=== PATIENT | male | born 1970 | race Caucasian/White ===

== ENCOUNTER → 2017-02-14 | Outpatient (CLI) | payer OTHER ==
[~2017-02-14] MED LIST: NXM/40 PO; VTMD PO; [UNRECOGNIZED DRUG - CODE] PO
== END | disposition home or self-care (01) ==
LOC: C.LABBC 08:11
PROVIDERS: ATTEND Family Medicine
DX: E22.1 Hyperprolactinemia (principal); D35.2 Benign neoplasm of pituitary gland

== ENCOUNTER → 2017-02-24 | Outpatient (CLI) | payer OTHER ==
[2017-02-24 13:24] LABS: BASO % 0.3 %; BASO ABS # 0.02 K/uL (0-0.2); EOS % 1.8 %; EOS ABS # 0.12 K/uL (0-0.5); HEMATOCRIT 42.1 % (42-52); HEMOGLOBIN 14.6 g/dL (14.0-18.0); IG# 0.02 K/uL (0.00-0.02); LYMPH % 15.4 %; MEAN CORPUSCULAR HEMOGLOBIN 32.6 pg (25-34); MEAN CORPUSCULAR HGB CONC 34.7 g/dl (32-36); MEAN PLATELET VOLUME 11.1 fL (7.4-10.4); MONO % 5.2 %; MONO ABS # 0.34 K/uL (0.11-0.59); NEUT ABS # 4.99 K/uL (1.4-6.5); PLATELET COUNT 190 K/uL (130-400); WHITE BLOOD COUNT 6.49 K/uL (4.8-10.8)
[2017-02-24 15:49] LABS: BLOOD UREA NITROGEN 15 mg/dl (7-18); CREATININE 1.01 mg/dl (0.60-1.40); URIC ACID 8.3 mg/dl (2.6-7.2)
== END | disposition home or self-care (01) ==
LOC: C.LABBC 11:44
PROVIDERS: ATTEND Orthopaedic Surgery
DX: M25.50 Pain in unspecified joint (principal); M10.9 Gout, unspecified

== ENCOUNTER → 2017-04-25 | Outpatient (CLI) | payer OTHER ==
[~2017-04-25] MED LIST changes: +GADAVIST IV PRN
--- NOTE | 2017-04-25 08:35 | DIAGNOSTIC IMAGING REPORT ---
BRAIN COMBO FOR PITUITARY HISTORY: 46 years-old Male BRAIN COMBO elevated prolactin level with known pituitary microadenoma COMPARISON: None available TECHNIQUE: Multiplanar multisequence MRI of the brain was obtained both with and without the use of 11.5 mL Gadavist utilizing pituitary protocol. FINDINGS: The large [id number] food service aide localizer images demonstrate no gross abnormality. There is no restricted diffusion to suggest acute or subacute infarction. The midline structures including the corpus callosum, brainstem, and optic chiasm are unremarkable. No cerebellar tonsillar herniation. 4 mm pineal gland cyst incidentally noted. Mild degenerative changes of the imaged cervical spine. There is no acute intracranial hemorrhage, midline shift, abnormal extra-axial collections, hydrocephalus or intra-axial mass lesion identified. There are multiple punctate foci of T2/FLAIR prolongation within the subcortical white matter of the cerebral hemispheres, notably within the frontal lobes, likely of no clinical significance. Brain parenchyma otherwise is unremarkable and within normal limits. The major flow voids at the level of the skull base appear patent. The orbits are symmetric and within normal limits. Mild mucosal thickening of the ethmoid air cells and maxillary sinuses. Mastoid air cells are clear. The scalp, calvarium and soft tissues are within normal limits. There is a focal area of ill-defined decreased enhancement within the left aspect of the mid to posterior pituitary gland, 4 x 4 x 2 mm. This area is isointense on the T1 images. Slight bulkiness of the gland seen within this region on the precontrast images. No significant remodeling of the adjacent sella. No abnormal intra-axial enhancement. IMPRESSION: 1. Focal area of slightly decreased enhancement involving the anterior aspect of the left pituitary measuring 4 mm may correlate with the patient's reported microadenoma. No additional focal pituitary abnormality identified. 2. No abnormal intra-axial enhancement identified. 3. Mild paranasal sinus disease. The above report was generated using voice recognition software. It may contain grammatical, syntax or spelling errors. Electronically signed by: Ryan Hancock M.D. 04/25/2017 8:34 AM Dictated Date/Time: 04/25/2017 8:12 AM
== END | disposition home or self-care (01) ==
LOC: C.MRIBC 06:47
PROVIDERS: ATTEND Family Medicine
DX: M10.9 Gout, unspecified (principal)